=== PATIENT | female | born 1960 | race Two or more races ===

== ENCOUNTER 2019-01-26 08:36 | Emergency (ER) | payer OTHER ==
[~2019-01-26] VITALS: Ht 170.2 cm; Wt 113.4 kg
[~2019-01-26 08:36] MED LIST: IBUPROFEN800 MG PO; LEVAQUIN500 MG PO; TUSSI PRES-B L120 M1 PO; TUSSIONEX PENNKI5 ML PO; XYZAL5 MG PO; ZITHROMAX TRI-500 MG PO
== END 2019-01-26 13:33 | disposition home or self-care (01) ==
LOC: ER 08:36
DX: J06.9 Acute upper respiratory infection, unspecified (principal); J45.998 Other asthma

== ENCOUNTER 2019-03-18 07:52 | Outpatient (CLI) | payer OTHER | END 2019-03-18 08:08 | disposition home or self-care (01) | LOC: LAB 07:52 | DX: E55.9 Vitamin D deficiency, unspecified (principal); D51.3 Other dietary vitamin B12 deficiency anemia; J45.20 Mild intermittent asthma, uncomplicated; E04.8 Other specified nontoxic goiter; D50.8 Other iron deficiency anemias; D51.8 Other vitamin B12 deficiency anemias; E03.8 Other specified hypothyroidism; I10 Essential (primary) hypertension; K90.89 Other intestinal malabsorption; R97.0 Elevated carcinoembryonic antigen [CEA] ==

== ENCOUNTER 2020-09-14 07:20 | Outpatient (CLI) | payer OTHER | END 2020-09-14 07:29 | disposition home or self-care (01) | LOC: LAB 07:20 | PROVIDERS: ATTEND Internal Medicine Geriatric Medicine | DX: D50.8 Other iron deficiency anemias (principal); E03.8 Other specified hypothyroidism; E78.2 Mixed hyperlipidemia; I11.9 Hypertensive heart disease without heart failure; E56.8 Deficiency of other vitamins; N39.0 Urinary tract infection, site not specified; Z12.11 Encounter for screening for malignant neoplasm of colon; R19.5 Other fecal abnormalities; E55.9 Vitamin D deficiency, unspecified; N19 Unspecified kidney failure; E11.9 Type 2 diabetes mellitus without complications; R80.8 Other proteinuria; C18.8 Malignant neoplasm of overlapping sites of colon; K92.1 Melena ==

== ENCOUNTER 2020-09-21 11:20 | Outpatient (CLI) | payer OTHER | END 2020-09-21 11:57 | disposition home or self-care (01) | LOC: LAB 11:20 | PROVIDERS: ATTEND Internal Medicine Geriatric Medicine | DX: D50.8 Other iron deficiency anemias (principal); E03.8 Other specified hypothyroidism; E78.2 Mixed hyperlipidemia; I11.9 Hypertensive heart disease without heart failure; E56.8 Deficiency of other vitamins; N39.0 Urinary tract infection, site not specified; Z12.11 Encounter for screening for malignant neoplasm of colon; E55.9 Vitamin D deficiency, unspecified; N19 Unspecified kidney failure; E11.9 Type 2 diabetes mellitus without complications; R80.8 Other proteinuria; C18.8 Malignant neoplasm of overlapping sites of colon; K92.1 Melena ==

== ENCOUNTER 2023-07-31 15:04 | Emergency (ER) | payer OTHER ==
[~2023-07-31] VITALS: Ht 170.2 cm; Wt 93.9 kg
[2023-07-31] MEDS ORDERED: SYNTHROID50 MCG PO (16:35)
[2023-07-31] MEDS ORDERED: METHYLPREDNISOLONE SOD SUCC 125 MG VIAL IV ONE (19:00)
[2023-07-31] MEDS ORDERED: LEVALBUTEROL HCL 1.25 MG/3 ML SOLUTION IH SCH (19:00)
[2023-07-31] MEDS ORDERED: IPRATROPIUM BROMIDE 0.5 MG/2.5 ML AMPUL.NEB IH SCH (19:00)
[2023-07-31] MEDS ORDERED: MAGNESIUM SULFATE IN WATER 2 GM/50 ML PIGGYBAG IV ONE (19:15)
== END 2023-07-31 21:41 | disposition home or self-care (01) ==
LOC: ER 15:04
DX: J45.901 Unspecified asthma with (acute) exacerbation (principal); Z88.0 Allergy status to penicillin